=== PATIENT | female | born 1985 | race Caucasian/White ===

== ENCOUNTER 2017-02-05 14:59 | Emergency (ER) | payer MEDICAID ==
[2017-02-05 17:15] LABS: CALCIUM 9.5 mg/dL (8.5-10.1); CARBON DIOXIDE 27.5 mmol/L (21-32); CHLORIDE SERUM 104 mmol/L (98-107); CREATININE SERUM 0.6 mg/dL (0.6-1.0); GFR1 > 60 mL/min; GLUCOSE SERUM 81 mg/dL (74-106); SODIUM SERUM 142 mmol/L (136-145)
[2017-02-05 17:16] LABS: BASOPHIL % 0.5 % (0-2); PLATELET COUNT 340 x10^3mcL (130-400); RED CELL DISTRIBUTION WIDTH 13.8 % (11.5-14.5)
[2017-02-05 17:22] LABS: ALBUMIN 4.2 g/dL (3.4-5.0); ALKALINE PHOSPHATASE 77 U/L (46-116); ALT/SGPT 20 U/L (14-59); AST/SGOT 15 U/L (15-37); BILIRUBIN TOTAL 0.2 mg/dL (0.20-1.00)
[2017-02-05 17:24] LABS: TOTAL PROTEIN, SERUM 8.5 g/dL (6.4-8.2)
[2017-02-05 19:08] VITALS: BP 126/60
== END 2017-02-05 19:08 | disposition home or self-care (01) ==
LOC: ED 14:59
PROVIDERS: Emergency Medicine
DX: G44.209 Tension-type headache, unspecified, not intractable (principal); R07.89 Other chest pain; F41.9 Anxiety disorder, unspecified
CPT/HCPCS: 36415; J8597; Q0092; Q0163

== ENCOUNTER 2018-06-05 08:01 | Emergency (ER) | payer MEDICAID ==
[~2018-06-05] VITALS: Ht 154.9 cm; Wt 104.8 kg
[2018-06-05 08:05] VITALS: BP 109/44; Ht 154.9 cm; Wt 104.8 kg
== END 2018-06-05 09:35 | disposition home or self-care (01) ==
LOC: ED 08:01
DX: S16.1XXA Strain of muscle, fascia and tendon at neck level, initial encounter (principal); M54.6 Pain in thoracic spine; R51 Headache; V48.5XXA Car driver injured in noncollision transport accident in traffic accident, initial encounter; Y93.I9 Activity, other involving external motion; Y92.488 Other paved roadways as the place of occurrence of the external cause; Y99.8 Other external cause status
CPT/HCPCS: J1885

== ENCOUNTER 2019-03-09 05:36 | Emergency (ER) | payer MEDICAID ==
[2019-03-09 08:04] VITALS: BP 117/69
== END 2019-03-09 08:04 | disposition home or self-care (01) ==
LOC: ED 05:36
DX: R51 Headache (principal); N10 Acute pyelonephritis; R11.2 Nausea with vomiting, unspecified
CPT/HCPCS: J1885; Q0162

== ENCOUNTER 2019-08-20 16:09 | Emergency (ER) | payer MEDICAID ==
[~2019-08-20] VITALS: Ht 157.5 cm; Wt 104.3 kg
[2019-08-20 16:21] VITALS: BP 128/78; Ht 157.5 cm; Wt 104.3 kg
== END 2019-08-20 18:33 | disposition home or self-care (01) ==
LOC: ED 16:09
DX: J02.9 Acute pharyngitis, unspecified (principal); H92.02 Otalgia, left ear

== ENCOUNTER 2019-11-14 11:59 | Emergency (ER) | payer MEDICAID ==
[~2019-11-14] VITALS: Ht 157.5 cm; Wt 108.9 kg
[2019-11-14 15:44] VITALS: BP 115/64
== END 2019-11-14 15:44 | disposition home or self-care (01) ==
LOC: ED 11:59
DX: R42 Dizziness and giddiness (principal); R51 Headache; R11.0 Nausea; I10 Essential (primary) hypertension; E11.9 Type 2 diabetes mellitus without complications; E66.9 Obesity, unspecified
CPT/HCPCS: U0003-CS

== ENCOUNTER 2020-04-13 12:45 | Emergency (ER) | payer MEDICAID, SELFPAY ==
[~2020-04-13] VITALS: Ht 160 cm; Wt 108.9 kg
[2020-04-13 12:55] VITALS: Ht 160 cm; Wt 108.9 kg
[2020-04-13 13:34] VITALS: BP 129/79
== END 2020-04-13 13:34 | disposition home or self-care (01) ==
LOC: ED 12:45
DX: U07.1 COVID-19 (principal); J06.9 Acute upper respiratory infection, unspecified
CPT/HCPCS: U0003

== ENCOUNTER 2020-05-02 10:47 | Emergency (ER) | payer MEDICAID ==
[~2020-05-02] VITALS: Ht 152.4 cm; Wt 114.8 kg
[2020-05-02 11:35] VITALS: BP 129/73; Ht 152.4 cm; Wt 114.8 kg
[2020-05-02 16:14] LABS: BASOPHIL % 0.5 % (0.2-1.3); PLATELET COUNT 341 x10^3mcL (179-408); RED CELL DISTRIBUTION WIDTH 13.8 % (12.3-17.7)
== END 2020-05-02 17:08 | disposition home or self-care (01) ==
LOC: ED 10:47
PROVIDERS: Emergency Medicine
DX: N93.9 Abnormal uterine and vaginal bleeding, unspecified (principal)

== ENCOUNTER 2020-05-04 10:54 | Emergency (ER) | payer MEDICAID ==
[~2020-05-04] VITALS: Ht 160 cm; Wt 112.9 kg
[2020-05-04 11:11] VITALS: Ht 160 cm; Wt 112.9 kg
[2020-05-04 13:46] VITALS: BP 115/71
== END 2020-05-04 13:46 | disposition home or self-care (01) ==
LOC: ED 10:54
DX: N93.9 Abnormal uterine and vaginal bleeding, unspecified (principal)

== ENCOUNTER 2020-05-11 10:09 | Emergency (ER) | payer MEDICAID ==
[~2020-05-11] VITALS: Ht 160 cm; Wt 113.9 kg
[2020-05-11 10:41] VITALS: BP 115/73; Ht 160 cm; Wt 113.9 kg
== END 2020-05-11 17:30 | disposition home or self-care (01) ==
LOC: ED 10:09
DX: O02.0 Blighted ovum and nonhydatidiform mole (principal)

== ENCOUNTER 2020-06-08 10:33 | Emergency (ER) | payer MEDICAID ==
[~2020-06-08] VITALS: Ht 160 cm; Wt 114.3 kg
[2020-06-08 10:39] VITALS: Ht 160 cm; Wt 114.3 kg
[2020-06-08 11:24] LABS: microscopic required? YES; urine erythrocyte 2+ (NEGATIVE)
[2020-06-08 11:36] LABS: BASOPHIL % 0.7 % (0.2-1.3); PLATELET COUNT 323 x10^3mcL (179-408); RED CELL DISTRIBUTION WIDTH 14.3 % (12.3-17.7)
[2020-06-08 14:24] VITALS: BP 108/71
== END 2020-06-08 14:24 | disposition home or self-care (01) ==
LOC: ED 10:33
PROVIDERS: Emergency Medicine
DX: N93.9 Abnormal uterine and vaginal bleeding, unspecified (principal)